=== PATIENT | male | born 1945 ===

== ENCOUNTER → 2025-04-03 12:20 | Outpatient (REF) | payer MEDICARE, SELFPAY | LOC: HWRAD 12:20 | PROVIDERS: ATTENDING PHYSICIAN Physician Assistant Medical; REFERRING PHYSICIAN Radiology Diagnostic Radiology | DX: Z91.81 History of falling (principal); R07.9 Chest pain, unspecified; M54.9 Dorsalgia, unspecified | CPT/HCPCS: 71250; 74176 ==